=== PATIENT | male | born 1970 | race African-American/Black ===

== ENCOUNTER 2017-05-02 06:31 | Emergency (ER) | payer MEDICAID ==
[2017-05-02 06:39] VITALS: BMI 32.1
[2017-05-02] MEDS ORDERED: NITROSTAT SL PRN (07:03)
[2017-05-02] MEDS ORDERED: CATAPRES TAB 0.2 MG PO ONE (07:03)
--- NOTE | 2017-05-02 07:11 | DR.GENAD ---
HPI - PCP Primary Care Physician: DR JONES ( IN [place] ) - Complaint/Symptoms Chief Complaint Doctors Comments: Patient states he has had a diffuse headache for the past three hours worst in top of his head were he has a nodule, soft area were he was injured playing football years ago. He denies chest paian, SOB , nausea or vomiting. States he had s stroke two years ago with left facial weakness and weakness right hand and legs. states he had two heart stents about a year ago. He took his medicine for high blood befoe coming to the emergency room. States this is the worst headache of his life and the pain is 7 of 10. States he lives in [place] and is in town visiting a friend and walked from across the street to the hospital. States he smokes one pack cigarettes dailybut denies alcohol or drug usage. States he had a CT of his head about two years ago when he had his stroke. states the place in top of his head has not gotten any larger. Chief Complaint:: PATIENT STATED FOR THE PAST 3 HOURS HE HAS HAD A HEAD ACHE AND VERY DIZZY. PATIENT ALSO STATED HE HAS A KNOT ON THE FRONT TOP OF HIS HEAD THAT HAS BEEN THERE SINCE HE PLAYED FOOTBALL. Self Treatment fo Chief Complaint: TOOK BP MEDS 30 MINUTES AGO, HE DOES NOT NO WHAT HE TAKES HIS [facility] IN [place]. - Nurses notes reviewed Nurses Notes Review: Yes - Source History Provided: Patient - Mode of Arrival Mode of Arrival: Ambulatory - Timing Onset of Chief Complaint: 05/02/17 Came on: Suddenly - Duration Duration: Constant How lon Duration: Hours - Location Location: top of head - Severity Severity: Moderate, Severe - Modifying Factors Worsens:: nothing Improves:: nothing PMH - PMH Past Medical History: Yes Past Medical History: CVA, Hypertension Past Surgical History: Yes Surgical History: Bowel Resection - Family History History of Family Medical Conditions: Yes Family Medical History: Hypertension - Social History Does patient currently use any type of tobacco product: Yes Have you used tobacco products in the last 12 months: Yes Type of Tobacco Use: Cigarettes How many years tobacco product used: 30 Does any household member use tobacco: No Alcohol Use: None Do you use any recreational Drugs:: No Lives With: Family Lives Where: Home - infectious screening In the last 2 months have you had wt loss of >10#?: NO Have you had fever, night sweats or hemotysis?: No Have you traveled outside the country in the last 6 months?: No Isolation: Standard ROS - Review of Systems Constitutional: No Symptoms Reported. negative: See HPI, Chills, Diaphoresis, Fever, Malaise, Weakness, Irritable, Fatigue, Loss of Appetite, Other Eyes: No Symptoms Reported. negative: See HPI, Eye Pain, Blurred Vision, Tearing, Discharge, Photophobia, Diplopia, Other ENTM: No Symptoms Reported. negative: See HPI (states had all teeth pulled six months ago), Ear Pain, Ear Discharge, Pulling on Ears, Hearing Loss, Nose Pain, Nose Discharge, Epistaxis, Nose Congestion, Mouth Pain, Mouth Swelling, Loose Teeth, Drooling, Throat Pain, Throat Swelling, Ear Foreign Body Respiratoy: No Symptoms Reported. negative: See HPI, Productive Cough, Non- Productive Cough, Moist Cough, Dry Cough, Hacking Cough, Barking Cough, Brassy Cough, Orthopnea, Short of Breath, Stridor, Wheezing, Hemoptysis, Other Cardiovascular: No Symptoms Reported, Palpitations. negative: See HPI, Chest Pain, Edema, Syncope, Cyanosis, Skin Mottling, Other Gastrointestinal/Abdominal: No Symptoms Reported. negative: See HPI, Abdominal Pain, Constipation, Diarrhea, Nausea, Vomiting, Food Intolerance, Other Genitourinary: No Symptoms Reported Neurological: Headache, Paresthesia (right hand and leg weakness), Speech Problem. negative: No Symptoms Reported, See HPI, Anxiety, Depressed, Emotional Problems, Numbness, Pre-existing Deficit, Seizure, Tingling, Tremors, Weakness, Dizziness, Problems Walking, Other Musculoskeletal: No Symptoms Reported, Right, Hand (contracture) Integumentary: No Symptoms Reported, Lesions (top of head with 6 cm area soft area). negative: See HPI, Change in Color, Change in Hair/Nails, Dryness, Lumps , Rash, Itching, Wound, Bruises, Juandice, Other Hematologic/Lymphatic: No Symptoms Reported. negative: See HPI, Anemia, Blood Clots, Easy Bleeding, Easy Bruising, Swollen Glands, Lymphadenopathy, Other Endocrine: No Symptoms Reported. negative: See HPI, Excessive Sweating, Flushing, Intolerance to Cold, Intolerance to Heat, Increased Hunger, Increased Thirst, Increased Urine, Unexplained Weight Gain, Unexplained Weight Loss, Failure to Thrive, Decreased Appetite, Other Psychiatric: No Symptoms Reported. negative: See HPI, Anxiety, Depression, Hallucinations, Excessive crying, Suicidal, Other PE - Vital Signs Vitals: Temperature 98.7 F Pulse Rate 94 Respiratory Rate 18 Blood Pressure [Left Arm] 224/118 Blood Pressure 229/141 O2 Sat by Pulse Oximetry 92 - General Limitations: No Limitations General Appearance: Alert (left facial weakness; slurred speech), In Distress ( moderated), Obese. negative: In No Apparent Distress, Appears Intoxicated, Anxious, Lethargic, Obtunded, Cachectic, Other - Head Head Exam: Normal Inspection, Normocephalic. negative: Atraumatic (6-7 soft tissue nodule parietal scalp) - Eyes Eye exam: Normal Appearance, PERRL, EOMI. negative: Scleral Icterus, Conjunctival Injection, Nystagmus, Miosis, Mydrasis, Periorbital Swelling, Periorbital Tenderness, Other - ENT ENT Exam: Normal Exam, Normal Oropharynx, Normal External Ear Exam, Mucous Membranes Moist, TM's Normal Bilaterally (patient edentulous) External Ear Exam: Normal External Inspection TM/Canal Exam: Bilateral Normal Nose Exam: Normal Nose Exam. negative: Sinus Tenderness, Nasal Deviation, Crepitus, Septal Hematoma, Laceration, Abrasion, Other Mouth Exam: Normal Inspection (left facial weakness) Throat Exam: Normal Inspection. negative: Tonsillar Erythema, Tonsillomegaly, Tonsillar Exudate, R Peritonsillar Mass, L Peritonsillar Mass, Muffled Voice, Other - Neck Neck Exam: Normal Inspection, Full ROM, Trachea Midline. negative: Tenderness, Meningismus, Lymphadenopathy, Thyromegaly, Other - Chest Chest Inspection: Normal Inspection, Symmetric Chest Wall Rise - Respiratory Respiratory Exam: Normal Lung Sounds Bilat Respiratory Exam: Bilateral Clear to Auscultation - Cardiovascular Cardiovascular Exam: Normal Rhythm, Irregular Rhythm, Systolic Murmur - Abdominal Exam Abdominal Exam: Normal Inspection, Normal Bowel Sounds, Soft. negative: Distention, Tenderness, Guarding, Rebound, Rigidity, Dimnished Bowel Sounds, Hyperactive Bowel Sounds, Hypoactive Bowel Sounds, Organomegaly, Trauma, Incision, Ascites, Mass, Bruit, Pulsatile Mass, Hernia, Other Abdominal Tenderness: negative: RUQ, RLQ, LUQ, LLQ, Epigastrium, Suprapubic, Diffuse, Mild, Moderate, Severe, Other - Extremities Extremities Exam: Normal Inspection, Full ROM, Normal Capillary Refill. negative: Tenderness (right hand contracture; right hand weakness;right leg weakness), Edema, Joint Swelling - Back Back Exam: Normal Inspection, Full ROM - Neurologic Neurological Exam: Alert, Oriented X3, CN II-XII Intact, Motor Sensory Deficit ( right hand and leg weakness 4/5; right hand contracture), Reflexes Normal. negative: Normal Gait (gait not tested) - Psychiatric Psychiatric Exam: Normal Affect, Normal Mood - Skin Skin Exam: Warm, Dry, Intact, Normal Color - Diagnosis Discharge Problem: Accelerated hypertension, Headache - Discharge Plan Condition: Stable - Follow ups/Referrals Follow ups/Referrals: [facility],None [Primary Care Provider] - 3 days - Instructions
[2017-05-02] MEDS ORDERED: CATAPRES TAB 0.2 MG ONE (07:16)
[2017-05-02 07:40] LABS: BASOPHILS # (AUTO) 0.1 X10^3/uL (0.0-0.1); BASOPHILS % (AUTO) 0.5 % (0.2-1.0); EOSINOPHILS # (AUTO) 0.3 x10^3/uL (0.0-0.2); EOSINOPHILS % (AUTO) 2.8 % (0.9-2.9); HEMATOCRIT 44.8 % (42.0-54.0); HEMOGLOBIN 14.9 g/dL (13.5-18.0); LYMPHOCYTES # (AUTO) 3.5 X10^3/uL (1.3-2.9); MEAN CORPUSCULAR HEMOGLOBIN 25.1 pg (27.0-34.0); MEAN CORPUSCULAR HGB CONC 33.2 g/dL (33.0-35.0); MEAN CORPUSCULAR VOLUME 75.7 fL (80.0-100.0); MEAN PLATELET VOLUME 9.3 fL (7.4-11.0); MONOCYTES # (AUTO) 0.8 x10^3/uL (0.3-0.8); MONOCYTES % (AUTO) 7.2 % (0.0-13.0); NEUTROPHILS # (AUTO) 6.6 x10^3/uL (2.2-4.8); NEUTROPHILS % (AUTO) 58.5 % (42.0-75.0); PLATELET COUNT 216 X10^3/uL (150.0-450.0); RED BLOOD COUNT 5.93 X10^6/uL (4.7-6.0); RED CELL DISTRIBUTION WIDTH 14.7 % (11.6-16.5); WHITE BLOOD COUNT 11.3 X10^3/uL (3.6-10.0)
[2017-05-02] MEDS ORDERED: NORMODYNE INJ 20 MG VIAL IVP ONE (07:51)
[2017-05-02 07:52] LABS: ALANINE AMINOTRANSFERASE 32 Units/L (12-78); ALBUMIN 3.7 g/dL (3.4-5.0); ALKALINE PHOSPHATASE 112 Units/L (46-116); ASPARTATE AMINO TRANSFERASE 27 Units/L (15-37); BLOOD UREA NITROGEN 12 mg/dL (7-18); CARBON DIOXIDE 25.1 mmol/L (21-32); CHLORIDE 104 mmol/L (98-107); CKMB % 1.8 % (<4); CREATINE KINASE 416 Units/L (39-308); CREATININE 1.41 mg/dL (0.70-1.30); MAGNESIUM 1.9 mg/dL (1.7-2.9); SODIUM 139 mmol/L (136-145); TOTAL PROTEIN 7.7 g/dL (6.4-8.2); eGFR BLACK RACES > 60 (>60); eGFR NON BLACK RACES 57 (>60)
[2017-05-02] MEDS ORDERED: NORMODYNE INJ 20 MG VIAL ONE (07:55)
[2017-05-02 08:05] LABS: CREATINE KINASE MB 7.3 ng/mL (0-4.0); TROPONIN I 1.87 ng/mL (0-1.5)
[2017-05-02 08:34] LABS: PLATELET MORPHOLOGY COMMENT NORMAL (NORMAL)
--- NOTE | 2017-05-02 10:07 | CT ---
HISTORY: Headache. Lump on forehead. Study: Computed tomography of the brain: Multiple axial images were obtained throughout the brain. Intravascular contrast was not administered. Radiation dose reduction techniques utilized. Comparison: None Findings: Overall examination brain reveals minimal cerebral atrophy. Moderate white matter disease is noted. Evidence for remote left basal ganglia infarction is present. No evidence of cortical effacement is noted. The olmos-white differentiation is fairly well maintained. With I see no evidence of subarac hnoid hemorrhage, subdural hematoma or epidural hematoma. Dense calcification is noted in the falx. The calvarium appears to be intact. There is what appears to be a subcutaneous lipoma involving the left forehead. The frontal sinuses are clear. Partial opacification of a few ethmoid air cells is noted. Minimal mucosal thickening is noted in the maxillary sinuses. The mastoids are clear. The p osterior fossa is intact. The pituitary fossa demonstrates a partially empty sella configuration. IMPRESSION: 1. Minimal cerebral atrophy and moderate white matter disease. 2. Evidence for remote left basal ganglia infarction. 3. No evidence of acute intracranial hemorrhage or infarction. 4. Minimal sinus disease. 5. The soft tissue mass over the left forehead appears to be a lipoma. Reported By:
[2017-05-02] MEDS ORDERED: MORPHINE SULFATE INJ 4 MG IVP ONE (10:24)
--- NOTE | 2017-05-02 10:46 | RAD ---
HISTORY: Chest pain Study: Single-view chest, done portably Comparison: No priors Findings: The trachea is midline. There is cardiomegaly with aortic uncoiling and very mild pulmonary vascular congestion. No evidence of infiltrate, CHF, pleural fluid or pneumothorax is seen. Osseous structures are intact. IMPRESSION: Hypertensive configuration with very mild pulmonary vascular congestion. No acute abnormality is seen . Reported By:
[2017-05-02 10:48] VITALS: BP 138/92
[2017-05-02 11:18] LABS: CKMB % 1.7 % (<4)
[2017-05-02 11:28] LABS: TROPONIN I 1.63 ng/mL (0-1.5)
== END 2017-05-02 13:11 | disposition home or self-care (01) ==
LOC: ER 06:31
DX: I10 Essential (primary) hypertension (principal); R51 Headache
CPT/HCPCS: 36415; 70450; 71045; 80053; 82550; 82553; 83735; 84484; 85025; 85610; 85730; 93005; 93010; 96365; 96367; 96374; 96375; 99283; 99284; A4222; J2270; J3490